=== PATIENT | male | born 2000 | race Caucasian/White ===

== ENCOUNTER 2018-08-02 18:23 | Emergency (ER) | payer OTHER ==
[2018-08-02] MEDS ORDERED: Ondansetron 4 MG/2 ML SDV IVPUSH ONE (18:29)
[2018-08-02] MEDS ORDERED: HYDROmorphone 1 MG/ML Syringe IVPUSH ONE ×2 (18:29→19:41)
[2018-08-02] MEDS ORDERED: HYDROmorphone 1 MG/ML Syringe ONE (18:30)
[2018-08-02] MEDS ORDERED: Sodium Chloride 0.9% 2.5 ML Syringe FLUSH PRN (18:30)
[2018-08-02] MEDS ORDERED: Sodium Chloride 0.9% 10 ML Syringe FLUSH PRN (18:30)
[2018-08-02] MEDS ORDERED: Sodium Chloride 0.9% 1,000 ML IV SCH (18:30)
[2018-08-02] MEDS ORDERED: Sodium Chloride 0.9% 1,000 ML IV ONE (18:30)
[2018-08-02] MEDS ORDERED: Ondansetron 4 MG/2 ML SDV ONE (18:30)
--- NOTE | 2018-08-02 18:31 | EDM.PDOC ---
ED HPI GENERAL MEDICAL PROBLEM - General Chief Complaint: Trauma Stated Complaint: POSSIBLE BROKEN LEG Time Seen by Provider: 08/02/18 18:30 Source of Information: Reports: Patient History Limitations: Reports: No Limitations - History of Present Illness INITIAL COMMENTS - FREE TEXT/NARRATIVE: HISTORY AND PHYSICAL: History of present illness: Patient is a 17-year-old male presents to the ED by private vehicle with crush injury to his lower extremities. Trauma code was called. Patient states that his lower extremities were crushed with a 2000+ pound "bird bath" used on a work -over rig. He states it crushed between his knees and his ankles. He was carried in to the ED by his co-workers. He denies significant past medical history. He denies chest pain, SOB, abdominal pain, nausea, vomiting, urinary or bowel symptoms. Dr. Vitale was directly involved in the care of the patient. Dr. Phillips, general surgery, was in ED secondary to the trauma code and agrees on transfer of patient to [facility]. Review of systems: As per history of present illness and below otherwise all systems reviewed and negative. Past medical history: As per history of present illness and as reviewed below otherwise noncontributory. Surgical history: As per history of present illness and as reviewed below otherwise noncontributory. Social history: No reported history of drug or alcohol abuse. Family history: As per history of present illness and as reviewed below otherwise noncontributory. Physical exam: General: Patient sitting comfortably in no acute distress and nontoxic appearing HEENT: Atraumatic, normocephalic, pupils reactive, negative for conjunctival pallor or scleral icterus, mucous membranes moist, throat clear, neck supple, nontender, trachea midline. No meningeal signs. Lungs: Clear to auscultation, breath sounds equal bilaterally, chest nontender. Heart: S1S2, regular, negative for clicks, rubs, or overt murmur. Abdomen: Soft, nondistended, nontender. Negative for masses or hepatosplenomegaly. Negative for costovertebral tenderness. No rigidity, rebound , guarding. Pelvis: Stable nontender. Genitourinary: Deferred. Rectal: Deferred. Extremities: Obvious deformities to the lower extremities bilaterally. Bony crepitance felt of the lower extremities bilaterally. Dorsal pedis pulses are faint but noted on doppler. He has no pain to palpation of the feet, knees, thighs, pelvis. Skin is intact. negative for cords or calf pain. Neurovascular unremarkable. Neuro: Awake, alert, oriented. Cranial nerves II through XII unremarkable. Cerebellum unremarkable. Motor and sensory unremarkable throughout. Exam nonfocal. Notes: Patient has stable vitals with an isolated injury to the lower extremities bilaterally. Pulses noted on doppler. Diagnostics: CBC, CMP, CPK, CXR, tib-fib x-rays bilaterally. Therapeutics: 2mg Dilaudid IV 2mg Ativan IV 4mg Zofran IV 1L Normal Saline IV Splint Prescriptions: Impression: Crush injury, comminuted tib-fib fractures bilaterally Plan: Dr. Arredondo, [facility], accepted patient for transfer via ground ambulance. Definitive disposition and diagnosis as appropriate pending reevaluation and review of above. Review of Systems - Review of Systems Review Of Systems: ROS reveals no pertinent complaints other than HPI. ED EXAM, GENERAL - Physical Exam Exam: See Below (see dictation) Course - Orders/Labs/Meds Orders: Active Orders 24 hr Category Date Time Status Admission Status [Patient Status] [ADT] Stat ADT 08/02/18 19:02 Ordered Chest 1V Frontal [CR] Stat Exams 08/02/18 18:31 Ordered Tibia Fibula Lt [CR] Stat Exams 08/02/18 18:30 Ordered Tibia Fibula Rt [CR] Stat Exams 08/02/18 18:30 Ordered Sodium Chloride 0.9% [Normal Saline] 1,000 ml Med 08/02/18 18:30 Active IV .Bolus Sodium Chloride 0.9% [Saline Flush] Med 08/02/18 18:30 Active 10 ml FLUSH ASDIRECTED PRN Sodium Chloride 0.9% [Saline Flush] Med 08/02/18 18:30 Active 2.5 ml FLUSH ASDIRECTED PRN Saline Lock Insert [OM.PC] Stat Oth 08/02/18 18:30 Ordered Medication Orders Sodium Chloride (Normal Saline) 1,000 mls @ 999 mls/hr IV .Bolus ONE Stop: 08/02/18 19:30 Sodium Chloride (Saline Flush) 10 ml FLUSH ASDIRECTED PRN PRN Reason: Keep Vein Open Sodium Chloride (Saline Flush) 2.5 ml FLUSH ASDIRECTED PRN PRN Reason: Keep Vein Open Labs: Laboratory Tests 08/02/18 08/02/18 Range/Units 18:30 18:30 WBC 12.43 H (4.0-11.0) K/uL RBC 5.24 (4.50-5.90) M/uL Hgb 15.1 (13.0-17.0) g/dL Hct 44.2 (38.0-50.0) % MCV 84.4 (80.0-98.0) fL MCH 28.8 (27.0-32.0) pg MCHC 34.2 (31.0-37.0) g/dL RDW Std Deviation 44.0 (28.0-62.0) fl RDW Coeff of Morena 14 (11.0-15.0) % Plt Count 222 (150-400) K/uL MPV 10.30 (7.40-12.00) fL Neut % (Auto) 52.6 (48.0-80.0) % Lymph % (Auto) 33.9 (16.0-40.0) % [place] % (Auto) 9.3 (0.0-15.0) % Eos % (Auto) 4.0 (0.0-7.0) % Baso % (Auto) 0.2 (0.0-1.5) % Neut # (Auto) 6.5 H (1.4-5.7) K/uL Lymph # (Auto) 4.2 H (0.6-2.4) K/uL [place] # (Auto) 1.2 H (0.0-0.8) K/uL Eos # (Auto) 0.5 (0.0-0.7) K/uL Baso # (Auto) 0.0 (0.0-0.1) K/uL Nucleated RBC % 0.0 /100WBC Nucleated RBCs # 0 K/uL Sodium 139 (136-148) mmol/L Potassium 3.5 (3.5-5.1) mmol/L Chloride 103 (98-107) mmol/L Carbon Dioxide 25.3 (21.0-32.0) mmol/L BUN 19 H (7.0-18.0) mg/dL Creatinine 1.1 (0.8-1.3) mg/dL Est Cr Clr Drug Dosing TNP Estimated GFR (MDRD) > 60.0 ml/min Glucose 114 H (74-106) mg/dL Calcium 8.8 (8.5-10.1) mg/dL Total Bilirubin 0.3 (0.2-1.0) mg/dL AST 28 (15-37) IU/L ALT 36 (14-63) IU/L Alkaline Phosphatase 73 (46-116) U/L Creatine Kinase 507 H (26-308) U/L Total Protein 7.1 (6.4-8.2) g/dL Albumin 4.0 (3.4-5.0) g/dL Globulin 3.1 (2.6-4.0) g/dL Albumin/Globulin Ratio 1.3 (0.9-1.6) Meds: Medications Generic Name Dose Route Start Last Admin Trade Name Freq PRN Reason Stop Dose Admin Sodium Chloride 1,000 mls @ 999 mls/hr 08/02/18 18:30 Normal Saline IV 08/02/18 19:30 .Bolus ONE Sodium Chloride 10 ml 08/02/18 18:30 Saline Flush FLUSH ASDIRECTED PRN Keep Vein Open Sodium Chloride 2.5 ml 08/02/18 18:30 Saline Flush FLUSH ASDIRECTED PRN Keep Vein Open Discontinued Medications Generic Name Dose Route Start Last Admin Trade Name Freq PRN Reason Stop Dose Admin Hydromorphone HCl 1 mg 08/02/18 18:29 Dilaudid IVPUSH 08/02/18 18:30 ONETIME ONE Hydromorphone HCl Confirm 08/02/18 18:30 Dilaudid Administered 08/02/18 18:31 Dose 1 mg .ROUTE .STK-MED ONE Lorazepam Confirm 08/02/18 18:41 Ativan Administered 08/02/18 18:42 Dose 2 mg .ROUTE .STK-MED ONE Ondansetron HCl 4 mg 08/02/18 18:29 Zofran IVPUSH 08/02/18 18:30 ONETIME ONE Ondansetron HCl Confirm 08/02/18 18:30 Zofran Administered 08/02/18 18:31 Dose 4 mg .ROUTE .STK-MED ONE Departure - Departure Time of Disposition: 19:06 Disposition: DC/Tfer to Acute Hospital 02 Condition: Good Clinical Impression: Crush injury, Tibia/fibula fracture - Discharge Information Forms: ED Department Discharge - My Orders Last 24 Hours: My Active Orders 08/02/18 19:02 Admission Status [Patient Status] [ADT] Stat - Assessment/Plan Last 24 Hours: My Active Orders 08/02/18 19:02 Admission Status [Patient Status] [ADT] Stat
[2018-08-02] MEDS ORDERED: LORazepam 2 MG/ML SDV ONE (18:41)
[2018-08-02] MEDS ORDERED: LORazepam 2 MG/ML SDV IVPUSH STA (18:47)
[2018-08-02 19:00] LABS: CHLORIDE,CL 103 mmol/L (98-107); SODIUM,NA 139 mmol/L (136-148)
--- NOTE | 2018-08-02 19:18 | CR ---
Indication: Pain, shortness of breath Technique: Chest 1 view Comparison: None Findings/Impression: Cardiovascular and mediastinum: Heart size and vasculature are normal in caliber and appearance. Mediastinum is within normal limits. Lungs and pleural space: Lungs are clear. No sign of infiltrate or mass. No sign of pleural effusion. No pneumothorax. Bones and soft tissues: No significant findings. Dictated by Kathie Carroll MD @ Aug 02 2018 7:16PM Signed by Dr. Kathie Carroll @ Aug 02 2018 7:17PM
--- NOTE | 2018-08-02 19:22 | CR ---
Indication: Crush injury Technique: Two views left tibia and fibula Comparison: None Findings/impression: 1. The lateral film excludes the majority of the fibula. Frontal view demonstrates an obliquely oriented fracture through the proximal 3rd of the left fibula with mild lateral apex angulation. Recommend a repeat lateral radiograph for full evaluation. 2. There is a comminuted fracture of the left mid tibia with a separate central fracture fragment measuring approximately 11.8 cm in length. Moderate surrounding soft tissue swelling. Dictated by Kathie Carroll MD @ Aug 02 2018 7:17PM Signed by Dr. Ktahie Carroll @ Aug 02 2018 7:21PM
--- NOTE | 2018-08-02 19:24 | CR ---
Indication: Crush injury Technique: Two views right tibia and fibula Comparison: None Findings/Impression: : Minimally displaced transverse fractures through the distal 1/3 of the right tibia and fibula. Mild surrounding soft tissue swelling. Dictated by Kathie Carroll MD @ Aug 02 2018 7:23PM Signed by Dr. Kathie Carroll @ Aug 02 2018 7:23PM
== END 2018-08-02 19:25 ==
LOC: MW.ED 18:23
DX: S87.82XA Crushing injury of left lower leg, initial encounter (principal); S87.81XA Crushing injury of right lower leg, initial encounter; S82.301A Unspecified fracture of lower end of right tibia, initial encounter for closed fracture; S82.401A Unspecified fracture of shaft of right fibula, initial encounter for closed fracture; W23.0XXA Caught, crushed, jammed, or pinched between moving objects, initial encounter
CPT/HCPCS: 29505; 51702; 71045; 73590; 80053; 81001; 82550; 85025; 96361; 96374; 96375; 99285; J1170; J2060; J2405; J7040; 99284

== ENCOUNTER 2019-05-16 17:24 | Emergency (ER) | payer SELFPAY ==
[2019-05-16] MEDS ORDERED: Sodium Chloride 0.9% 1,000 ML IV ONE (18:09)
[2019-05-16] MEDS ORDERED: Dexamethasone 10 MG/ML SDV IVPUSH ONE ×2 (18:10→19:47)
[2019-05-16 19:13] LABS: BLOOD UREA NITROGEN,BUN 11 mg/dL (7.0-18.0); CARBON DIOXIDE,CO2 28.9 mmol/L (21.0-32.0); CHLORIDE,CL 102 mmol/L (98-107); GLUCOSE RANDOM 80 mg/dL (74-106); POTASSIUM,K 3.8 mmol/L (3.5-5.1); SODIUM,NA 140 mmol/L (136-148)
[2019-05-16] MEDS ORDERED: Clindamycin Phosphate in D5W 900 MG in Premix Bag 1 BAG IV ONE ×2 (20:14)
--- NOTE | 2019-05-16 21:16 | CT ---
INDICATION: Throat pain for 2 days. Possible abscess. COMPARISON: None available TECHNIQUE: CT examination of the neck is performed using spiral technique during the uneventful intravenous administration of 80 cc of Isovue 370. 3 mm thick axial sections were made along with coronal and sagittal sections. Please note that all CT scans at this facility use dose modulation, iterative reconstruction, and/or weight-based dosing when appropriate to reduce radiation dose to as low as reasonably achievable. FINDINGS: There is prominent diffuse enlargement of both pharyngeal tonsils with streaky areas of alternating high and low density, consistent with prominent acute tonsillitis. No distinct abscess is identified. There is slightly more swelling on the right than the left. The hypopharyngeal airway is prominently narrowed, but there does not appear to be impending airway compromise. There is mild bilateral superior jugular chain lymphadenopathy, level 2, with bilateral lymph nodes having short axis diameter of 1.4 centimeters. These are probably reactive nodes. The airway structures are otherwise normal in appearance. There is no sign of additional cervical mass or adenopathy on today`s study. The salivary glands are normal in appearance. The visualized posterior fossa, mastoids, skull base, and orbits are normal in appearance. There is mild mucosal thickening in the posterior ethmoids, left greater than right, consistent with mild chronic sinusitis. There is mild mucosal thickening in the left sphenoid sinus from additional mild chronic sinusitis. The great vessels are unremarkable. The thyroid gland is normal in appearance. The visualized upper chest is clear. The visualized upper mediastinum is normal in appearance. The osseous structures are unremarkable. IMPRESSION: Findings of prominent bilateral acute tonsillitis without distinct abscess. Prominent narrowing of the hypopharyngeal airway, but with ounce appearance of impending airway compromise. Mild bilateral superior jugular chain lymphadenopathy, level 2, probably reactive. Mild chronic bilateral ethmoid and left sphenoid sinusitis. Please note that all CT scans at this facility use dose modulation, iterative reconstruction, and/or weight-based dosing when appropriate to reduce radiation dose to as low as reasonably achievable. Dictated by Jayy Shen MD @ May 16 2019 9:06PM Signed by Dr. Jayy Shen @ May 16 2019 9:14PM
[2019-05-16] MEDS ORDERED: Lidocaine 2% Viscous Solution 15 ML Cup PO ONE (21:35)
[2019-05-16] MEDS ORDERED: Lidocaine 2% Viscous Solution 15 ML Cup ONE (21:36)
--- NOTE | 2019-05-16 21:52 | EDM.PDOC ---
ED HPI GENERAL MEDICAL PROBLEM - General Chief Complaint: ENT Problem Stated Complaint: FLU SYMPTOMS Time Seen by Provider: 05/16/19 17:58 Source of Information: Reports: Patient History Limitations: Reports: No Limitations - History of Present Illness Onset Date: 05/13/19 Duration: Day(s): (3) Location: Reports: Other (throat pain) Quality: Reports: Ache Severity: Moderate Improves with: Reports: None Worsens with: Reports: None Associated Symptoms: Reports: No Other Symptoms body Pain Score (Numeric/FACES): 6 - Related Data Allergies Allergy/AdvReac Type Severity Reaction Status Date / Time No Known Allergies Allergy Verified 05/16/19 17:45 Home Meds: Home Meds . [No Known Home Meds] 08/02/18 [History] Past Medical History - Past Health History Medical/Surgical History: Denies Medical/Surgical History Musculoskeletal History: Reports: Fracture - Infectious Disease History Infectious Disease History: Reports: Influenza Social & Family History - Family History Family Medical History: Noncontributory - Tobacco Use Smoking Status *Q: Current Every Day Smoker Years of Tobacco use: 1 Packs/Tins Daily: 1 - Caffeine Use Caffeine Use: Reports: None - Recreational Drug Use Recreational Drug Use: No ED ROS ENT - Review of Systems Review Of Systems: See Below Constitutional: Reports: Malaise HEENT: Reports: Throat Pain Respiratory: Reports: No Symptoms Cardiovascular: Reports: No Symptoms Endocrine: Reports: No Symptoms GI/Abdominal: Reports: No Symptoms : Reports: No Symptoms Musculoskeletal: Reports: No Symptoms Skin: Reports: No Symptoms Neurological: Reports: No Symptoms Psychiatric: Reports: No Symptoms Hematologic/Lymphatic: Reports: No Symptoms Immunologic: Reports: No Symptoms ED EXAM, ENT - Physical Exam Exam: See Below Exam Limited By: No Limitations General Appearance: Alert, WD/WN, Mild Distress Eye Exam: Bilateral Eye: Normal Fundi, Normal Inspection, PERRL Ears: Normal External Exam, Normal Canal, Normal TMs Nose: Normal Inspection, Normal Mucousa, No Blood Mouth/Throat: Normal Inspection, Tonsillar Exudates, Tonsillar Swelling, Uvular Edema Head: Atraumatic, Normocephalic Neck: Normal Inspection, Supple, Non-Tender, Full Range of Motion Respiratory/Chest: No Respiratory Distress, Lungs Clear, Normal Breath Sounds, No Accessory Muscle Use Cardiovascular: Normal Peripheral Pulses GI/Abdominal: Normal Bowel Sounds, Soft, Non-Tender Neurological: Alert, Oriented, CN II-XII Intact Skin: Warm, Dry, Intact Lymphatic: No Adenopathy Course - Vital Signs Last Recorded V/S: Last Vital Signs Temp 99 F 05/16/19 17:46 Pulse 124 H 05/16/19 17:46 Resp 16 05/16/19 17:46 BP 124/76 05/16/19 17:46 Pulse Ox 96 05/16/19 17:46 - Orders/Labs/Meds Orders: Active Orders 24 hr Category Date Time Status Communication Order [RC] STAT Care 05/16/19 21:45 Ordered CULTURE BLOOD [BC] Stat Lab 05/16/19 20:05 Received CULTURE BLOOD [] Stat Lab 05/16/19 20:13 Received CULTURE STREP A CONFIRMATION [] Stat Lab 05/16/19 17:51 Results STREP SCRN A RAPID W CULT CONF [] Stat Lab 05/16/19 17:51 Results Blood Culture x2 Reflex Set [OM.PC] Stat Oth 05/16/19 19:57 Ordered Labs: Laboratory Tests 05/16/19 05/16/19 05/16/19 Range/Units 18:48 18:48 18:48 WBC 16.92 H (4.0-11.0) K/uL RBC 5.45 (4.50-5.90) M/uL Hgb 15.3 (13.0-17.0) g/dL Hct 46.0 (38.0-50.0) % MCV 84.4 (80.0-98.0) fL MCH 28.1 (27.0-32.0) pg MCHC 33.3 (31.0-37.0) g/dL RDW Std Deviation 45.3 (28.0-62.0) fl RDW Coeff of Morena 15 (11.0-15.0) % Plt Count 163 (150-400) K/uL MPV 10.20 (7.40-12.00) fL Neut % (Auto) 77.4 (48.0-80.0) % Lymph % (Auto) 8.3 L (16.0-40.0) % [place] % (Auto) 13.3 (0.0-15.0) % Eos % (Auto) 0.8 (0.0-7.0) % Baso % (Auto) 0.2 (0.0-1.5) % Neut # (Auto) 13.1 H (1.4-5.7) K/uL Lymph # (Auto) 1.4 (0.6-2.4) K/uL [place] # (Auto) 2.3 H (0.0-0.8) K/uL Eos # (Auto) 0.1 (0.0-0.7) K/uL Baso # (Auto) 0.0 (0.0-0.1) K/uL Nucleated RBC % 0.0 /100WBC Nucleated RBCs # 0 K/uL Sodium 140 (136-148) mmol/L Potassium 3.8 (3.5-5.1) mmol/L Chloride 102 (98-107) mmol/L Carbon Dioxide 28.9 (21.0-32.0) mmol/L BUN 11 (7.0-18.0) mg/dL Creatinine 0.9 (0.8-1.3) mg/dL Est Cr Clr Drug Dosing 93.24 mL/min Estimated GFR (MDRD) > 60.0 ml/min Glucose 80 (74-106) mg/dL Calcium 9.3 (8.5-10.1) mg/dL Total Bilirubin 0.3 (0.2-1.0) mg/dL AST 14 L (15-37) IU/L ALT 23 (14-63) IU/L Alkaline Phosphatase 72 (46-116) U/L Total Protein 7.8 (6.4-8.2) g/dL Albumin 3.8 (3.4-5.0) g/dL Globulin 4.0 (2.6-4.0) g/dL Albumin/Globulin Ratio 0.9 (0.9-1.6) Monoscreen NEGATIVE (NEG) Meds: Medications Discontinued Medications Generic Name Dose Route Start Last Admin Trade Name Freq PRN Reason Stop Dose Admin Dexamethasone 10 mg 05/16/19 18:10 05/16/19 19:03 Dexamethasone IVPUSH 05/16/19 18:11 Not Given ONETIME ONE Dexamethasone 10 mg 05/16/19 19:47 05/16/19 20:15 Dexamethasone IVPUSH 05/16/19 19:48 10 mg ONETIME ONE Administration Sodium Chloride 1,000 mls @ 999 mls/hr 05/16/19 18:09 05/16/19 19:03 Normal Saline IV 05/16/19 19:09 Not Given BOLUS ONE Clindamycin Phosphate 900 mg/ 56 mls @ 100 mls/hr 05/16/19 18:11 05/16/19 19: 04 Sodium Chloride IV 05/16/19 18:44 Not Given ONETIME ONE Clindamycin Phosphate 900 mg/ 56 mls @ 100 mls/hr 05/16/19 19:44 05/16/19 20: 30 Sodium Chloride IV 05/16/19 20:17 Not Given ONETIME ONE Clindamycin Phosphate 900 mg/ 50 mls @ 100 mls/hr 05/16/19 20:14 05/16/19 20: 15 Premix IV 05/16/19 20:43 100 mls/hr ONETIME ONE Administration Lidocaine HCl 15 ml 05/16/19 21:35 05/16/19 21:38 Xylocaine 2% Viscous PO 05/16/19 21:36 15 ml ONETIME ONE Administration Lidocaine HCl Confirm 05/16/19 21:36 05/16/19 21:38 Xylocaine 2% Viscous Administered 05/16/19 21:37 Not Given Dose 15 ml .ROUTE .STK-MED ONE Departure - Departure Time of Disposition: 21:52 Disposition: Home, Self-Care 01 Condition: Good Clinical Impression: Tonsillitis Pharyngitis Qualifiers: Pharyngitis/tonsillitis etiology: unspecified etiology Qualified Code(s): J02.9 - Acute pharyngitis, unspecified - Discharge Information Instructions: Pharyngitis, Tonsillitis, [id number] Referrals: PCP,None [Primary Care Provider] - Additional Instructions: Patient is to take pain medicine ibuprofen. Patient is also to take steroids. Patient to take antibiotics. Patient to follow-up with ENT as soon as possible. Patient to return to the emergency room for shortness of breath difficulty breathing severe pain. Sepsis Event Note - Evaluation Sepsis Screening Result: No Definite Risk - Focused Exam Vital Signs: Vital Signs Temp Pulse Resp BP Pulse Ox 05/16/19 17:46 99 F 124 H 16 124/76 96 Date Exam was Performed: 05/16/19 Time Exam was Performed: 21:47 - My Orders Last 24 Hours: My Active Orders 05/16/19 19:57 Blood Culture x2 Reflex Set [OM.PC] Stat 05/16/19 20:05 CULTURE BLOOD [BC] Stat 05/16/19 20:13 CULTURE BLOOD [BC] Stat 05/16/19 21:45 Communication Order [RC] STAT - Assessment/Plan Last 24 Hours: My Active Orders 05/16/19 19:57 Blood Culture x2 Reflex Set [OM.PC] Stat 05/16/19 20:05 CULTURE BLOOD [BC] Stat 05/16/19 20:13 CULTURE BLOOD [BC] Stat 05/16/19 21:45 Communication Order [RC] STAT
[2019-05-16] MEDS ORDERED: Iopamidol 755 MG/ML 500 ML Multipack Bottle IVPUSH ONE (21:58)
== END 2019-05-16 22:21 | disposition home or self-care (01) ==
LOC: MW.ED 17:24
DX: J03.90 Acute tonsillitis, unspecified (principal); F17.210 Nicotine dependence, cigarettes, uncomplicated
CPT/HCPCS: 36415; 70491; 80053; 85025; 86308; 87040; 87081; 87804; 87880; 96365; 96375; 99283; A9270; J1100; J3490; Q9967

== ENCOUNTER 2019-12-23 10:21 | Emergency (ER) | payer SELFPAY ==
--- NOTE | 2019-12-23 10:54 | EDM.PDOC ---
ED HPI GENERAL MEDICAL PROBLEM - General Chief Complaint: Lower Extremity Injury/Pain Stated Complaint: RT LEG COMPLAINT Time Seen by Provider: 12/23/19 10:48 Source of Information: Reports: Patient History Limitations: Reports: No Limitations - History of Present Illness INITIAL COMMENTS - FREE TEXT/NARRATIVE: HISTORY AND PHYSICAL: History of present illness: Patient is a 19-year-old male who presents to the emergency room with complaints of generalized right knee pain. He states approximately a year ago he did have surgery which required "rods" into the right knee. Pain started a few days ago and is progressively become more bothersome. He remains ambulatory and weightbearing although he feels like he is adjusting his gait due to the pain. He denies any injury, trauma or falls. Denies any numbness, tingling, saddle paresthesias or weakness of the extremity. Offers no systemic complaints. Review of systems: As per history of present illness and below otherwise all systems reviewed and negative. Past medical history: As per history of present illness and as reviewed below otherwise noncontributory. Surgical history: As per history of present illness and as reviewed below otherwise noncontributory. Social history: See social history for further information Family history: As per history of present illness and as reviewed below otherwise noncon tributory. Physical exam: General: Well-developed and well-nourished 19-year-old male. Alert and oriented. Nontoxic-appearing and in no acute distress. HEENT: Atraumatic, normocephalic, pupils equal and reactive bilaterally, negative for conjunctival pallor or scleral icterus, mucous membranes moist, trachea midline. No drooling or trismus noted. No meningeal signs. No hot potato voice noted. Lungs: Clear to auscultation, breath sounds equal bilaterally, chest nontender. Heart: S1S2, regular rate and rhythm without overt murmur Abdomen: Soft, nondistended, nontender. Skin: No soft tissue swelling or redness. Skin is intact, warm, dry. No lesions or rashes noted. Extremities: Atraumatic, moves all extremities per self without difficulty or deficits, generalized knee discomfort with palpation, no knee instability, negative drawer test, normal gait, negative for cords or calf pain. Pedal pulses bilaterally. Neurovascular unremarkable. Neuro: Awake, alert, oriented. Cranial nerves II through XII unremarkable. Cerebellum unremarkable. Motor and sensory unremarkable throughout. Exam nonfocal. Notes: Patient is aware of the limitations in the emergency room. He is agreeable to a n x-ray at this time. X-ray is WNL. We discussed the need for follow-up with an orthopedic provider as he may require further imaging/diagnostics. At this time he is appropriate for discharge to home. Patellar knee cut out brace and crutches for right knee sprain. Wear until follow up with orthopedics. Supportive care measures were reviewed and discussed. Voices understanding and is agreeable to plan of care. Denies any further questions or concerns at this time. Diagnostics: Knee x-ray Therapeutics: Patellar cut out, crutches Prescription: Diclofenac (#30) Impression: Right knee sprain Plan: 1. Rest, ice, elevate the affected extremity. Please wear the splint as directed. 2. Tylenol as needed for pain management. Diclofenac has been prescribed, this medication is an NSAID so do not take any additional ibuprofen, Aleve or aspirin. Take this medication with food. 3. Follow up with the Orthopedic provider as we discussed - you may need additional imagine/testing. 4. Return to the ED as needed and as discussed. Definitive disposition and diagnosis as appropriate pending reevaluation and review of above. Right Knee Pain Score (Numeric/FACES): 8 - Related Data Allergies Allergy/AdvReac Type Severity Reaction Status Date / Time No Known Allergies Allergy Verified 12/23/19 10:40 Home Meds: Home Meds Diclofenac Sodium [Voltaren] 75 mg PO BIDMEALS PRN #30 tab.cr 12/23/19 [Rx] Past Medical History - Past Health History Medical/Surgical History: Denies Medical/Surgical History Musculoskeletal History: Reports: Fracture - Infectious Disease History Infectious Disease History: Reports: Influenza Social & Family History - Family History Family Medical History: Noncontributory - Caffeine Use Caffeine Use: Reports: None Review of Systems - Review of Systems Review Of Systems: Comprehensive ROS is negative, except as noted in HPI. ED EXAM, GENERAL - Physical Exam Exam: See Below (See dictation) Course - Vital Signs Last Recorded V/S: Last Vital Signs Temp 96.5 F L 12/23/19 10:40 Pulse 95 12/23/19 10:40 Resp 16 12/23/19 10:40 BP 141/95 H 12/23/19 10:40 Pulse Ox 98 12/23/19 10:40 - Orders/Labs/Meds Orders: Active Orders 24 hr Category Date Time Status DME for Discharge [COMM] Stat Oth 12/23/19 11:40 Ordered Departure - Departure Time of Disposition: 12:29 Disposition: Home, Self-Care 01 Clinical Impression: Knee sprain Qualifiers: Encounter type: initial encounter Involved ligament of knee: unspecified ligament Laterality: right Qualified Code(s): S83.91XA - Sprain of unspecified site of right knee, initial encounter - Discharge Information Prescriptions: Diclofenac Sodium [Voltaren] 75 mg PO BIDMEALS PRN #30 tab.cr PRN Reason: Pain Instructions: Knee Sprain, Adult, [id number] Referrals: PCP,None [Primary Care Provider] - Forms: ED Department Discharge Additional Instructions: The following information is given to patients seen in the emergency department who are being discharged to home. This information is to outline your options for follow-up care. We provide all patients seen in our emergency department with a follow-up referral. The need for follow-up, as well as the timing and circumstances, are variable depending upon the specifics of your emergency department visit. If you don't have a primary care physician on staff, we will provide you with a referral. We always advise you to contact your personal physician following an emergency department visit to inform them of the circumstance of the visit and for follow-up with them and/or the need for any referrals to a consulting specialist. The emergency department will also refer you to a specialist when appropriate. This referral assures that you have the opportunity for follow-up care with a specialist. All of these measure are taken in an effort to provide you with optimal care, which includes your follow-up. Under all circumstances we always encourage you to contact your private physician who remains a resource for coordinating your care. When calling for follow-up care, please make the office aware that this follow-up is from your recent emergency room visit. If for any reason you are refused follow-up, please contact the [facility] Emergency Department at and asked to speak to the emergency department charge nurse. [facility] Primary Care [address] [place] [id number] [facility] [address] [place] [id number] Thank you for choosing the [facility] emergency department in [place] for your medical needs today. It was a pleasure caring for you. You were seen in the emergency department for knee pain. 1. Rest, ice, elevate the affected extremity. Please wear the splint as directed. 2. Tylenol as needed for pain management. Diclofenac has been prescribed, this medication is an NSAID so do not take any additional ibuprofen, Aleve or aspirin. Take this medication with food. 3. Follow up with the Orthopedic provider as we discussed - you may need additional imagine/testing. 4. Return to the ED as needed and as discussed. Sepsis Event Note (ED) - Evaluation Sepsis Screening Result: No Definite Risk - Focused Exam Vital Signs: Vital Signs Temp Pulse Resp BP Pulse Ox 12/23/19 10:40 96.5 F L 95 16 141/95 H 98 - My Orders Last 24 Hours: My Active Orders 12/23/19 11:40 DME for Discharge [COMM] Stat - Assessment/Plan Last 24 Hours: My Active Orders 12/23/19 11:40 DME for Discharge [COMM] Stat
--- NOTE | 2019-12-23 12:27 | CR ---
Right knee: AP, lateral and sunrise patellar views of the right knee were obtained. Comparison: No previous knee exam. Medial and lateral joint compartments are maintained in height. No joint effusion is seen. Right patellofemoral joint is within normal limits. Intramedullary edilberto is partially visualized within the tibia. Impression: 1. Intramedullary edilberto partially visualized. 2. Three-view right knee study is is otherwise unremarkable. Diagnostic code #2 This report was dictated in MDT
== END 2019-12-23 12:43 | disposition home or self-care (01) ==
LOC: MW.ED 10:21
DX: S83.91XA Sprain of unspecified site of right knee, initial encounter (principal); X58.XXXA Exposure to other specified factors, initial encounter
CPT/HCPCS: 73562-26-RT; 73562-RT; 99283; 99283-25

== ENCOUNTER 2021-02-23 12:25 | Emergency (ER) | payer SELFPAY ==
--- NOTE | 2021-02-23 13:08 | EDM.PDOC ---
ED HPI GENERAL MEDICAL PROBLEM - General Stated Complaint: CHILLS COUGHING Time Seen by Provider: 02/23/21 13:08 Source of Information: Reports: Patient History Limitations: Reports: No Limitations - History of Present Illness INITIAL COMMENTS - FREE TEXT/NARRATIVE: HISTORY AND PHYSICAL: History of present illness: Patient is a 20-year-old male who presents to the emergency room with complaints of cough, body aches, nausea, vomiting and diarrhea x2 days. Patient denies any injury, trauma or falls. States the nausea and vomiting has improved and is not had any emesis since since this morning. Patient denies any fever, headache, change in vision, syncope or near syncope. Denies any chest pain, back pain, shortness of breath or hemoptysis. Denies any abdominal pain, constipation or dysuria. Has not noted any blood in urine or stool. Patient has been eating and drinking appropriately. No recent travel or sick contacts. Review of systems: As per history of present illness and below otherwise all systems reviewed and negative. Past medical history: As per history of present illness and as reviewed below otherwise noncontributory. Surgical history: As per history of present illness and as reviewed below otherwise noncontributory. Social history: See social history for further information Family history: As per history of present illness and as reviewed below otherwise noncont ributory. Physical exam: General: Well developed and well nourished 20-year-old male. Alert and orientated x 3. Nontoxic in appearance and in no acute distress. Vital signs are stable and have been reviewed by me. Nursing notes were reviewed. HEENT: Atraumatic, normocephalic, pupils equal and reactive bilaterally, negative for conjunctival pallor or scleral icterus, mucous membranes moist, TMs normal bilaterally, throat clear, neck supple, nontender, trachea midline. No drooling or trismus noted. No meningeal signs. No hot potato voice noted. Lungs: Clear to auscultation bilaterally. No wheezes, rales, or rhonchi. Chest nontender. Normal work of breathing, no accessory muscles used. Heart: S1S2, regular rate and rhythm without overt murmur, gallops, or rubs. No JVD. No peripheral edema Abdomen: Soft, nondistended, nontender. Normoactive bowel sounds. Negative for masses or costovertebral tenderness. Skin: Intact, warm, dry. No lesions or rashes noted. Hematologic: No petechiae or purpra. Mucosa appropriate color and normal nail bed color and refill. Extremities: Atraumatic, moves all extremities per self without difficulty or deficits, negative for cords or calf pain. Neurovascular unremarkable. Neuro: Awake, alert, oriented. Cranial nerves II through XII unremarkable. Cerebellum unremarkable. Motor and sensory unremarkable throughout. Exam nonfocal. Psychiatric: Mood and affect are appropriate. Normal thought process. Answering questions appropriately. Please note that the patient was seen and evaluated during the 2019 SARS-CoV-2 novel coronavirus pandemic period. Community viral transmission is ongoing at time of this encounter and the emergency department is operating under pandemic response procedures. Medical Decision Making: Patient is a 20-year-old male who presents to the emergency room with complaints of body aches, cough, nausea vomiting and diarrhea over the past 2 days. He states his body pain is 9/10. Physical exam is unremarkable. I will do basic labs along with chest x-ray and assess for COVID-19. He states he feels dehydrated due to the nausea and vomiting he experienced yesterday and would like some IV fluids at this time. Lab work is unremarkable. Negative COVID-19. Chest x-ray shows no acute findings. He does feel improved after the fluids. He is surprised his COVID-19 is negative. I did recommend him to be retested in a few days if he continues to have symptoms. Recommended to isolate until then. I have talked with the patient about today's findings, in addition to providing specific details for plan of care. Reassessment at the time of disposition demonstrates that the patient is in no acute distress. The patient is stable for discharge, counseling was provided and we discussed in great detail signs and symptoms that would prompt them to return to the Emergency Department. Medication, follow up and supportive care measures were reviewed and discussed. Voices understanding and is agreeable to plan of care. Denies any further questions or concerns at this time. Diagnostics: CBC, CMP, UA, CPK, chest x-ray, COVID-19 Therapeutics: IV fluid Prescription: Zofran Impression: Viral illness Plan: 1. You were evaluated today on an emergent basis. Your lab work today is within normal limits. Chest x-ray shows no signs of infection. Negative COVID-19. If you are concerned of COVID-19, it may be too early to detect in your system at this time - you can be re-checked/swabbed in 1-2 days if desired. Follow up in the outpatient testing clinic. 2. You can alternate Tylenol and ibuprofen as needed for pain and fever management. 3. We encourage you to follow up with your primary care provider and/or recommended specialist in the next few days for re-evaluation and further care/management. 4. If your symptoms should worsen, new symptoms develop or any of the signs and symptoms we discussed should arise please return to the emergency room or call 911 (if needed). Definitive disposition and diagnosis as appropriate pending reevaluation and review of above. body aches Pain Score (Numeric/FACES): 9 - Related Data Allergies Allergy/AdvReac Type Severity Reaction Status Date / Time No Known Allergies Allergy Verified 02/23/21 13:11 Home Meds: Home Meds Ondansetron [Zofran ODT] 4 mg PO Q6H PRN #8 tab.dis 02/23/21 [Rx] Past Medical History - Past Health History Medical/Surgical History: Denies Medical/Surgical History Musculoskeletal History: Reports: Fracture - Infectious Disease History Infectious Disease History: Reports: Influenza - Past Surgical History Other Musculoskeletal Surgeries/Procedures:: Right knee surgery Social & Family History - Family History Family Medical History: No Pertinent Family History - Caffeine Use Caffeine Use: Reports: None ED ROS GENERAL - Review of Systems Review Of Systems: Comprehensive ROS is negative, except as noted in HPI. ED EXAM, GENERAL - Physical Exam Exam: See Below (See dictation) Course - Vital Signs Last Recorded V/S: Last Vital Signs Temp 97.7 F 02/23/21 13:09 Pulse 72 02/23/21 15:06 Resp 20 02/23/21 15:06 BP 131/82 02/23/21 15:06 Pulse Ox 99 02/23/21 15:06 - Orders/Labs/Meds Labs: Laboratory Tests 02/23/21 02/23/21 02/23/21 Range/Units 13:34 13:35 13:48 WBC 6.86 (4.0-11.0) K/uL RBC 5.08 (4.50-5.90) M/uL Hgb 14.8 (13.0-17.0) g/dL Hct 43.4 (38.0-50.0) % MCV 85.4 (80.0-98.0) fL MCH 29.1 (27.0-32.0) pg MCHC 34.1 (31.0-37.0) g/dL RDW Std Deviation 46.4 (28.0-62.0) fl RDW Coeff of Morena 15 (11.0-15.0) % Plt Count 165 (150-400) K/uL MPV 10.40 (7.40-12.00) fL Neut % (Auto) 77.0 (48.0-80.0) % Lymph % (Auto) 10.8 L (16.0-40.0) % [place] % (Auto) 10.6 (0.0-15.0) % Eos % (Auto) 1.3 (0.0-7.0) % Baso % (Auto) 0.3 (0.0-1.5) % Neut # (Auto) 5.3 (1.4-5.7) K/uL Lymph # (Auto) 0.7 (0.6-2.4) K/uL [place] # (Auto) 0.7 (0.0-0.8) K/uL Eos # (Auto) 0.1 (0.0-0.7) K/uL Baso # (Auto) 0.0 (0.0-0.1) K/uL Nucleated RBC % 0.0 /100WBC Nucleated RBCs # 0 K/uL Sodium (136-148) mmol/L Potassium (3.5-5.1) mmol/L Chloride (98-107) mmol/L Carbon Dioxide (21.0-32.0) mmol/L BUN (7.0-18.0) mg/dL Creatinine (0.8-1.3) mg/dL Est Cr Clr Drug Dosing mL/min Estimated GFR (MDRD) ml/min Glucose (74-106) mg/dL Calcium (8.5-10.1) mg/dL Total Bilirubin (0.2-1.0) mg/dL AST (15-37) IU/L ALT (14-63) IU/L Alkaline Phosphatase (46-116) U/L Creatine Kinase (26-308) U/L Total Protein (6.4-8.2) g/dL Albumin (3.4-5.0) g/dL Globulin (2.6-4.0) g/dL Albumin/Globulin Ratio (0.9-1.6) Lipase (73-393) U/L Urine Color YELLOW Urine Appearance CLEAR Urine pH 6.0 (5.0-8.0) Ur Specific Philo 1.020 (1.001-1.035) Urine Protein NEGATIVE (NEGATIVE) mg/dL Urine Glucose (UA) NEGATIVE (NEGATIVE) mg/dL Urine Ketones NEGATIVE (NEGATIVE) mg/dL Urine Occult Blood NEGATIVE (NEGATIVE) Urine Nitrite NEGATIVE (NEGATIVE) Urine Bilirubin NEGATIVE (NEGATIVE) Urine Urobilinogen 0.2 (<2.0) EU/dL Ur Leukocyte Esterase NEGATIVE (NEGATIVE) SARS-CoV-2 RNA (JUSTO) NEGATIVE (NEGATIVE) 02/23/21 Range/Units 13:48 WBC (4.0-11.0) K/uL RBC (4.50-5.90) M/uL Hgb (13.0-17.0) g/dL Hct (38.0-50.0) % MCV (80.0-98.0) fL MCH (27.0-32.0) pg MCHC (31.0-37.0) g/dL RDW Std Deviation (28.0-62.0) fl RDW Coeff of Morena (11.0-15.0) % Plt Count (150-400) K/uL MPV (7.40-12.00) fL Neut % (Auto) (48.0-80.0) % Lymph % (Auto) (16.0-40.0) % [place] % (Auto) (0.0-15.0) % Eos % (Auto) (0.0-7.0) % Baso % (Auto) (0.0-1.5) % Neut # (Auto) (1.4-5.7) K/uL Lymph # (Auto) (0.6-2.4) K/uL [place] # (Auto) (0.0-0.8) K/uL Eos # (Auto) (0.0-0.7) K/uL Baso # (Auto) (0.0-0.1) K/uL Nucleated RBC % /100WBC Nucleated RBCs # K/uL Sodium 141 (136-148) mmol/L Potassium 3.6 (3.5-5.1) mmol/L Chloride 103 (98-107) mmol/L Carbon Dioxide 27.4 (21.0-32.0) mmol/L BUN 12 (7.0-18.0) mg/dL Creatinine 1.0 (0.8-1.3) mg/dL Est Cr Clr Drug Dosing 115.87 mL/min Estimated GFR (MDRD) > 60.0 ml/min Glucose 97 (74-106) mg/dL Calcium 8.9 (8.5-10.1) mg/dL Total Bilirubin 0.2 (0.2-1.0) mg/dL AST 24 (15-37) IU/L ALT 38 (14-63) IU/L Alkaline Phosphatase 61 (46-116) U/L Creatine Kinase 284 (26-308) U/L Total Protein 7.3 (6.4-8.2) g/dL Albumin 4.0 (3.4-5.0) g/dL Globulin 3.3 (2.6-4.0) g/dL Albumin/Globulin Ratio 1.2 (0.9-1.6) Lipase 55 L (73-393) U/L Urine Color Urine Appearance Urine pH (5.0-8.0) Ur Specific Philo (1.001-1.035) Urine Protein (NEGATIVE) mg/dL Urine Glucose (UA) (NEGATIVE) mg/dL Urine Ketones (NEGATIVE) mg/dL Urine Occult Blood (NEGATIVE) Urine Nitrite (NEGATIVE) Urine Bilirubin (NEGATIVE) Urine Urobilinogen (<2.0) EU/dL Ur Leukocyte Esterase (NEGATIVE) SARS-CoV-2 RNA (JUSTO) (NEGATIVE) Meds: Medications Discontinued Medications Generic Name Dose Route Start Last Admin Trade Name Freq PRN Reason Stop Dose Admin Sodium Chloride 1,000 mls @ 999 mls/hr 02/23/21 13:16 02/23/21 13:52 Normal Saline IV 02/23/21 14:16 999 mls/hr STAT ONE Administration Ketorolac Tromethamine 30 mg 02/23/21 13:16 02/23/21 14:37 Ketorolac 30 Mg/Ml Sdv IVPUSH 02/23/21 13:17 30 mg ONETIME ONE Administration Ondansetron HCl 4 mg 02/23/21 13:16 02/23/21 14:37 Ondansetron 4 Mg/2 Ml Sdv IVPUSH 02/23/21 13:17 4 mg ONETIME ONE Administration Departure - Departure Time of Disposition: 17:59 Disposition: Home, Self-Care 01 Clinical Impression: Viral URI - Discharge Information Prescriptions: Ondansetron [Zofran ODT] 4 mg PO Q6H PRN #8 tab.dis PRN Reason: Nausea Instructions: Upper Respiratory Infection, Adult, [id number] Referrals: PCP,None [Primary Care Provider] - Forms: ED Department Discharge Additional Instructions: The following information is given to patients seen in the emergency department who are being discharged to home. This information is to outline your options for follow-up care. We provide all patients seen in our emergency department with a follow-up referral. The need for follow-up, as well as the timing and circumstances, are variable depending upon the specifics of your emergency department visit. If you don't have a primary care physician on staff, we will provide you with a referral. We always advise you to contact your personal physician following an emergency department visit to inform them of the circumstance of the visit and for follow-up with them and/or the need for any referrals to a consulting spec ialist. The emergency department will also refer you to a specialist when appropriate. This referral assures that you have the opportunity for follow-up care with a specialist. All of these measure are taken in an effort to provide you with optimal care, which includes your follow-up. Under all circumstances we always encourage you to contact your private physician who remains a resource for coordinating your care. When calling for follow-up care, please make the office aware that this follow-up is from your recent emergency room visit. If for any reason you are refused follow-up, please contact the [facility] Emergency Department at and asked to speak to the emergency department charge nurse. [facility] Primary Care [address] [place] [address] [id number] [address] Thank you for choosing the [facility] emergency department in [place] for your medical needs today. It was a pleasure caring for you. Today you were seen in the emergency department for cough and body aches. 1. You were evaluated today on an emergent basis. Your lab work today is within normal limits. Chest x-ray shows no signs of infection. Negative COVID-19. Your symptoms appear to be viral in nature. If you are concerned of COVID-19, it may be too early to detect in your system at this time - you can be re- checked/swabbed in 1-2 days if desired. Follow up in the outpatient testing clinic. 2. You can alternate Tylenol and ibuprofen as needed for pain and fever management. 3. We encourage you to follow up with your primary care provider and/or recommended specialist in the next few days for re-evaluation and further care/management. 4. If your symptoms should worsen, new symptoms develop or any of the signs and symptoms we discussed should arise please return to the emergency room or call 911 (if needed). Sepsis Event Note (ED) - Focused Exam Vital Signs: Vital Signs Temp Pulse Resp BP Pulse Ox 02/23/21 15:06 72 20 131/82 99 02/23/21 13:09 97.7 F 95 20 146/85 H 97
[2021-02-23] MEDS ORDERED: Ondansetron 4 MG/2 ML SDV IVPUSH ONE (13:16)
[2021-02-23] MEDS ORDERED: Sodium Chloride 0.9% 1,000 ML IV ONE (13:16)
[2021-02-23] MEDS ORDERED: Ketorolac 30 MG/ML SDV IVPUSH ONE (13:16)
--- NOTE | 2021-02-23 13:48 | CR ---
INDICATION: Chest Pain, shortness of breath TECHNIQUE: Chest radiograph 1 view COMPARISON: 08/02/2018 FINDINGS: Mediastinum: The mediastinum is normal in appearance. The heart silhouette is normal in size and morphology. Lung: Both lungs are unremarkable in appearance with small lung volumes. No sign of pleural effusion seen. No pneumothorax is identified. Bone and Soft tissue: Unremarkable for age. IMPRESSION: 1. No acute cardiopulmonary disease is seen. Dictated by: Brady Hidalgo MD @ 02/23/2021 13:46:22 (Electronically Signed)
[2021-02-23 14:41] LABS: BLOOD UREA NITROGEN,BUN 12 mg/dL (7.0-18.0); CARBON DIOXIDE,CO2 27.4 mmol/L (21.0-32.0); CHLORIDE,CL 103 mmol/L (98-107); GLUCOSE RANDOM 97 mg/dL (74-106); LIPASE 55 U/L (73-393); POTASSIUM,K 3.6 mmol/L (3.5-5.1); SODIUM,NA 141 mmol/L (136-148)
== END 2021-02-23 15:06 | disposition home or self-care (01) ==
LOC: MW.ED 12:25
DX: J06.9 Acute upper respiratory infection, unspecified (principal); B34.9 Viral infection, unspecified; Z20.822 Contact with and (suspected) exposure to COVID-19
CPT/HCPCS: 36415; 71045; 80053; 81003; 82550; 83690; 85025; 87635; 96374; 96375; 99284; J1885; J2405; J7030; U0002

== ENCOUNTER 2023-12-18 15:04 | Emergency (ER) | payer BC ==
[2023-12-18] MEDS: Ondansetron 4 MG/2 ML SDV IVPUSH ONE (15:36)
[2023-12-18] MEDS: Ketorolac 30 MG/ML SDV IVPUSH ONE (15:36)
[2023-12-18] MEDS: Sodium Chloride 0.9% 1,000 ML IV ONE (15:36)
[2023-12-18 15:42] LABS: BASOPHILS ABSOLUTE AUTO 0.03 K/uL (0.00-0.20); BASOPHILS PERCENT AUTO 0.4 % (0.0-1.0); EOSINOPHILS ABSOLUTE AUTO 0.16 K/uL (0.00-0.45); HEMATOCRIT 45.5 % (42.0-52.0); HEMOGLOBIN 15.5 g/dL (14.0-18.0); IMMATURE GRAN ABSOLUTE AUTO 0.01 K/uL (0.00-0.05); IMMATURE GRAN PERCENT AUTO 0.1 % (0.0-0.4); LYMPHOCYTES ABSOLUTE AUTO 2.17 K/uL (1.00-4.80); LYMPHOCYTES PERCENT AUTO 27.6 % (24.0-44.0); MEAN CORPUSCULAR HEMOGLOBIN 27.9 pg (28.0-32.0); MEAN CORPUSCULAR HGB CONC 34.1 g/dL (32.0-36.0); MEAN PLATELET VOLUME 9.8 fL (9.4-12.4); MONOCYTES ABSOLUTE AUTO 0.66 K/uL (0.00-0.80); MONOCYTES PERCENT AUTO 8.4 % (0.0-8.0); NEUTROPHILS ABSOLUTE AUTO 4.84 K/uL (1.80-7.70); NEUTROPHILS PERCENT AUTO 61.5 % (41.0-71.0); PLATELET COUNT,PLT 227 K/uL (150-400); RED BLOOD CELL COUNT 5.55 M/uL (4.52-5.90); WHITE BLOOD CELL COUNT,WBC 7.87 K/uL (3.9-11.3)
[2023-12-18 15:44] LABS: APPEARANCE,URINE CLEAR; BILIRUBIN,URINE NEGATIVE (NEGATIVE); COLOR,URINE YELLOW; GLUCOSE,URINE NEGATIVE (NEGATIVE); KETONES,URINE NEGATIVE (NEGATIVE); LEUKOCYTE ESTERASE,URINE NEGATIVE (NEGATIVE); NITRITE,URINE NEGATIVE (NEGATIVE); OCCULT BLOOD,URINE NEGATIVE (NEGATIVE); PROTEIN,URINE NEGATIVE (NEGATIVE); UROBILINOGEN,URINE 0.2 EU/dL (<2.0)
[2023-12-18 16:10] LABS: A/G RATIO 1.5 (0.9-1.6); ALBUMIN 4.2 g/dL (3.4-5.0); BILIRUBIN TOTAL 0.3 mg/dL (0.2-1.0); CALCIUM 8.9 mg/dL (8.5-10.1); CARBON DIOXIDE,CO2 27.9 mmol/L (21.0-32.0); CREATININE 0.9 mg/dL (0.8-1.3); EST CRCL DRUG DOSING (CG) 125.47 mL/min; POTASSIUM,K 3.9 mmol/L (3.5-5.1)
== END 2023-12-18 18:04 | disposition home or self-care (01) ==
LOC: MW.ED 15:04
DX: R10.31 Right lower quadrant pain (principal); Z79.899 Other long term (current) drug therapy; Z75.8 Other problems related to medical facilities and other health care
CPT/HCPCS: 36415; 74176; 76870; 80053; 81003; 83690; 85025; 93976; 96361; 96374; 96375; 99284; J1885; J2405; J7030